=== PATIENT | female | born 2000 | race Caucasian/White ===

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

== ENCOUNTER 2020-09-21 14:00 | Outpatient (RCR) | payer OTHER, MEDICAID, SELFPAY ==
[2020-09-24 13:59] VITALS: BMI 28.5
== END 2020-09-21 23:59 ==
LOC: IMMUN 14:00
PROVIDERS: PCP Family Medicine; Visit Provider Family Medicine
DX: Z23 Encounter for immunization (principal)
CPT/HCPCS: 0001A; 91300

== ENCOUNTER 2021-10-04 12:23 | Outpatient (CLI) | payer OTHER, MEDICAID, SELFPAY ==
--- NOTE | 2021-10-04 12:29 | US_ITS ---
HISTORY: right breast mass EXAMINATION: US Breast Unilateral Limited TECHNIQUE: Targeted bueno scale and color-doppler imaging was performed of the right breast COMPARISON: None FINDINGS: Heterogeneous background echotexture. Dense peaks of normal breast parenchyma in the right breast area of clinical concern at the 11-12 o'clock position There are no solid or cystic lesions identified. No suspicious shadowing. There is no sonographic architectural distortion. US/Breast Limited Unilateral IMPRESSION: Normal subcutaneous peaks of dense breast parenchyma in the area of clinical concern. BIRADS CATEGORY: 2 - Benign findings. RECOMMENDATIONS: Clinical follow-up for palpable abnormality. Repeat ultrasound with diagnostic mammography would be recommended if there is interval clinical change or persistent clinical concern. Negative imaging should not preclude biopsy of a clinically suspicious abnormality. NOTES: 7-10% of cancers are not identified by mammography. Guidelines for Early Breast Cancer Detection: * Annual breast examination by a physician or other health care provider. * Monthly breast self-examination. * Annual mammography screening beginning at age 40 and continuing for as long as a woman is in good health. * Women at increased risk (e.g., family history, genetic tendency, past breast cancer) should talk with their doctors about the benefits and limitations of starting mammography screening earlier, having additional tests (e.g., breast ultrasound or MRI) or having more frequent exams. Screening MRI is recommended for women with an approximately 20-25% or greater lifetime risk of breast cancer, including women with a strong family history of breast or ovarian cancer and women who were treated for Hodgkin''s disease. at 0831 Reported and signed by: Smith Tello MD Electronically Signed: Smith Tello MD at 8:29 EDT ,
== END 2021-10-04 23:59 | disposition home or self-care (01) ==
PROVIDERS: PCP Family Medicine; Referring Provider Nurse Practitioner Women's Health; Visit Provider Nurse Practitioner Women's Health
DX: N63.10 Unspecified lump in the right breast, unspecified quadrant (principal)
CPT/HCPCS: 76642

== ENCOUNTER → 2022-01-10 | Outpatient (CLI) | payer OTHER, MEDICAID, SELFPAY ==
[2022-01-14 11:55] LABS: HPV Reflexed? NOT INDICATED
== END | disposition home or self-care (01) ==
LOC: LABSPEC 10:02
PROVIDERS: PCP Family Medicine; Visit Provider Nurse Practitioner Women's Health
DX: Z12.4 Encounter for screening for malignant neoplasm of cervix (principal)
CPT/HCPCS: 88175; G0145

== ENCOUNTER → 2023-02-09 | Outpatient (CLI) | payer OTHER, MEDICAID, SELFPAY ==
[2023-02-11 22:06] LABS: Chlamydia By Nucleic Acid AMP Negative (Negative); Gonococcus By Nucleic Acid AMP Negative (Negative)
== END | disposition home or self-care (01) ==
PROVIDERS: PCP Family Medicine; Referring Provider Advanced Practice Midwife; Visit Provider Advanced Practice Midwife
DX: O09.90 Supervision of high risk pregnancy, unspecified, unspecified trimester (principal); Z3A.00 Weeks of gestation of pregnancy not specified
CPT/HCPCS: 87086; 87088; 87491; 87591

== ENCOUNTER → 2023-02-09 | Outpatient (CLI) | payer MEDICAID, SELFPAY ==
[2023-02-09 15:27] LABS: Absolute Lymphocyte Count 1.79 X10^3/uL (0.83-4.51); Absolute Neutrophil Count 5.4 X10^3/uL (2.0-7.7); Basophil# 0.02 X10^3/uL; Basophil% 0.2 % (0-1); Eosinophil# 0.22 X10^3/uL; Eosinophils% 2.7 % (0-5); Hematocrit 38.1 % (37-47); Hemoglobin 12.8 g/dL (12.0-15.0); Lymphocyte # 1.79 X10^3/ul (0.83-4.51); Lymphocyte % 22.2 % (19-41); Mean Corp Hgb Conc 33.6 g/dL (32-36); Mean Corpuscular Hgb 28.6 pg (27.0-32.0); Mean Corpuscular Volume 85.2 fL (81-99); Mean Platelet Vol. 9.1 fl (6.2-12.0); Monocyte# 0.57 X10^3/uL; Monocyte% 7.1 % (0-10); NRBC Flagged by Analyzer 0 % (0-5); Neutrophil # 5.41 X10^3/uL (2.7-7.7); Neutrophil % 67.3 % (47-70); Platelet Count 260 K/mm3 (150-450); RBC Distribution Width SD 37.2 fl (35.1-43.9); Red Blood Count 4.47 M/mm3 (4.2-5.4); White Blood Count 8.1 K/mm3 (4.4-11.0)
[2023-02-09 16:52] LABS: HIV - WCH Non-Reactive (Nonreactive); Hepatitis B Surface Antigen Non-Reactive (Nonreactive); Hepatitis C Antibody Non-Reactive (Nonreactive); Rubella IgG Reactive (Nonreactive); Syphilis Antibodies Non-reactive
== END | disposition home or self-care (01) ==
PROVIDERS: PCP Family Medicine; Referring Provider Advanced Practice Midwife; Visit Provider Advanced Practice Midwife
DX: O09.90 Supervision of high risk pregnancy, unspecified, unspecified trimester (principal); Z3A.00 Weeks of gestation of pregnancy not specified
CPT/HCPCS: 36415; 85025; 86703; 86762; 86780; 86803; 86850; 86900; 86901; 87340

== ENCOUNTER → 2023-04-29 | Outpatient (CLI) | payer OTHER, MEDICAID, SELFPAY ==
--- NOTE | 2023-04-29 13:18 | US_ITS ---
STUDY: SECOND AND THIRD TRIMESTER OBSTETRICAL ULTRASOUND REASON FOR EXAM: Female, 22 years old anatomy US LMP: December 09, 2022. TECHNIQUE: Transabdominal and Transvaginal TECHNICAL QUALITY: Adequate. PRIOR ULTRASOUND: None. FINDINGS: There is a single intrauterine fetus. The fetus is in a transverse lie with the head on the maternal right side. There is demonstrated cardiac activity with a heart rate of 149 bpm. There is a normal amniotic fluid volume. The largest amniotic fluid pocket measures 4.57 x 3.1 cm. The amniotic fluid index (TRENT) is within normal limits. The placenta is posterior in location and is not low lying. There are Grade 0 placental changes. The cervix measures 3.1 cm in length. The adnexal regions are not visualized. BIOMETRY: BPD: 4.95 cm: 21 weeks, 0 days HC: 18.42 cm: 20 weeks, 5 days AC: 16.53 cm: 21 weeks, 4 days FL: 3.17 cm: 19 weeks, 6 days CI: 77% FL/BPD: 64% FL/HC: FL/AC: 19.2% HC/AC: 1.11 age by current US: 20 weeks, 5 days. ZORA by current US: September 11, 2023. Estimated weight: 383 grams, +/- 58 grams, 82 %. Age by LMP: 20 weeks, 1 days. ZORA by LMP: September 15, 2023. ANATOMY: Gender: Male Cranium: Normal lateral ventricles. Normal choroid plexus. Normal cerebellum. Normal cisterna magna. Normal face, nose and lips. Chest: Normal 4-chamber heart. Abdomen/Pelvis: Normal diaphragm. Normal stomach. Normal abdominal wall. Normal cord insertion. Normal 3 vessel cord. Normal kidneys. Normal bladder. Spine: Normal cervical spine. Normal thoracic spine. Normal lumbar spine. Normal sacrum. Extremities: Normal bilateral upper extremities. Normal bilateral lower extremities. IMPRESSION: Single live intrauterine gestation with a mean gestational age of 20 weeks and 5 days. Electronically Signed: Dwayne Valenzuela MD at 15:49 EDT , STUDY: FIRST TRIMESTER OBSTETRICAL ULTRASOUND REASON FOR EXAM: Female, 22 years old. Cervical length. LMP: December 09, 2022. TECHNIQUE: Transvaginal TECHNICAL QUALITY: Adequate. PRIOR ULTRASOUND: None. FINDINGS: Cervical length measures 3.1 cm. US/OB Anatomy Scan IMPRESSION: Cervical length measures 3.1 cm. Electronically Signed: Dwayne Valenzuela MD at 15:50 EDT ,
== END | disposition home or self-care (01) ==
PROVIDERS: PCP Family Medicine; Referring Provider Advanced Practice Midwife; Visit Provider Advanced Practice Midwife
DX: O09.90 Supervision of high risk pregnancy, unspecified, unspecified trimester (principal); Z3A.00 Weeks of gestation of pregnancy not specified
CPT/HCPCS: 76805; 76817

== ENCOUNTER → 2023-05-14 | Outpatient (CLI) | payer OTHER, MEDICAID, SELFPAY ==
--- NOTE | 2023-05-14 14:29 | US_ITS ---
EXAM: US , TRANSVAGINAL CLINICAL INDICATION: cervical length follow up. TECHNIQUE: Real-time endovaginal obstetrical ultrasound of the maternal pelvis and a first trimester with image documentation. Transvaginal imaging was used for better evaluation of the fetus and adnexa. COMPARISON: No relevant prior studies available. FINDINGS: GESTATION: Single fetus. Cephalic presentation. cardiac rate is 155 bpm. PLACENTA/AMNIOTIC FLUID: Posterior placenta. Amniotic fluid volume appears normal. UTERUS/CERVIX: Cervical length by endovaginal scanning is 3.8 cm. OVARIES: Not visualized. FREE FLUID: No free fluid. US/Transvaginal w/Preg US IMPRESSION: Single live second trimester intrauterine gestation. Normal cervical length. Electronically Signed: Julio César Mayorga MD at 15:58 EST ,
== END | disposition home or self-care (01) ==
LOC: US 14:29
PROVIDERS: PCP Family Medicine; Referring Provider Registered Nurse; Visit Provider Registered Nurse
DX: O26.872 Cervical shortening, second trimester (principal); Z3A.00 Weeks of gestation of pregnancy not specified
CPT/HCPCS: 76817

== ENCOUNTER → 2023-06-26 | Outpatient (CLI) | payer OTHER, MEDICAID, SELFPAY ==
[2023-06-26 10:54] LABS: Absolute Lymphocyte Count 1.18 X10^3/uL (0.83-4.51); Absolute Neutrophil Count 5.5 X10^3/uL (2.0-7.7); Basophil# 0.02 X10^3/uL; Basophil% 0.3 % (0-1); Eosinophils% 2.7 % (0-5); Hematocrit 32.8 % (37-47); Lymphocyte # 1.18 X10^3/ul (0.83-4.51); Lymphocyte % 16.1 % (19-41); Mean Corp Hgb Conc 33.5 g/dL (32-36); Mean Corpuscular Hgb 29.5 pg (27.0-32.0); Mean Corpuscular Volume 87.9 fL (81-99); Mean Platelet Vol. 9.3 fl (6.2-12.0); Monocyte# 0.41 X10^3/uL; Monocyte% 5.6 % (0-10); NRBC Flagged by Analyzer 0 % (0-5); Neutrophil % 74.8 % (47-70); Platelet Count 195 K/mm3 (150-450); RBC Distribution Width CV 12.1 % (11.6-14.6); RBC Distribution Width SD 38.9 fl (35.1-43.9); Red Blood Count 3.73 M/mm3 (4.2-5.4); White Blood Count 7.4 K/mm3 (4.4-11.0)
--- OUTSIDE RECORDS SUMMARY | 2023-06-26 10:57 | XMS RPT_ITS | CCD ---
Author Name Unknown Address [id number] [place] [address] Organization [facility] Care Team Providers Care Shift Superintendent Caustic Cresylate Name Role Phone Pham BOSE, Belle Jermoe Unavailable [phone] OROZCO Unavailable Unavailable BELLE NATH Unavailable UnavailMANJU Moreira Unavailable Unavailable NO, DOCTOR ON Consulting Unavailable MAUREEN YA DO Admitting Unavailable DIDMAUREEN CHEUNG DO Primary Care Unavailable MAUREEN YA DO Attending Unavailable TRUSSNENA DO Admitting Unavailable TRUSSNENA DO Primary Care Unavailable TRUSSNENA DO Attending Unavailable NO, DOCTOR ON Consulting Unavailable Medications Completed/Discontinued Medications Medication Drug Class(es) Dates Sig (Normalized) Sig (Original) VIT-FE FUMARATE-FA (13 sources) Start: 01-30-2017 take 1 tablet by mouth once daily VITAMINS 28-0.8 MG TABS One tablet by mouth daily VIT-FE FUMARATE-FA [id number] Belle Nath MD Problems Active Problems Problem Classification Problem Date Documented Date Episodic/Chronic E Codes: Place of occurrence (1 source) Unspecified place in unspecified non-institutional (private) residence as the place of occurrence of the external cause; Translations: [Unspecified place in unspecified non-institutional (private) residence as the place of occurrence of the external cause] Onset: 07-30-2021 Episodic E Codes: Struck by; against (1 source) Walked into wall, initial encounter; Translations: [Walked into wall, initial encounter] Onset: 07-30-2021 Episodic E Codes: Unspecified (1 source) Activity, other specified; Translations: [Activity, other specified] Onset: 07-30-2021 Episodic Fracture of lower limb (1 source) Displaced fracture of proximal phalanx of left lesser toe(s), initial encounter for closed fracture; Translations: [Displaced fracture of proximal phalanx of left lesser toe(s), initial encounter for closed fracture] Onset: 07-30-2021 Episodic Other bone disease and musculoskeletal deformities (20 sources) Kezia Schlatter disease; 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, unspecified leg] Resolved: 02-01-2017 02-01-2017 Chronic Other connective tissue disease (2 sources) Pain in left foot; Translations: [Pain in left foot] Onset: 07-30-2021 Episodic Residual codes; unclassified (1 source) 20 weeks gestation of ; Translations: [20 weeks gestation of ] Onset: 01-30-2017 04-21-2017 Past or Other Problems Problem Classification Problem Date Documented Da te Episodic/Chronic Fracture of upper limb (20 sources) Unspecified fracture of lower end of unspecified ulna, initial encounter for closed fracture; Translations: [Fracture of distal end of radius] Onset: 08-26-2011 Resolved: 02-01-2017 02-01-2017 Episodic Normal and/or delivery (20 sources) Gestation period, 10 weeks; Translations: [Gestation period, 12 weeks] Onset: 01-30-2017 02-01-2017 Episodic Other non-traumatic joint disorders (20 sources) Pain in wrist; Translations: [Knee pain] Onset: 08-26-2011 Resolved: 02-01-2017 02-01-2017 Episodic Other non-traumatic joint disorders (4 sources) Knee pain; Translations: [Pain in right knee] Resolved: 02-01-2017 02-01-2017 Episodic Unclassified (8 sources) 16 weeks gestation of ; Translations: [16 weeks gestation of ] Onset: 01-30-2017 03-27-2017 Results Test Name Value Interpretation Reference Range Facil ity Vital Signs Date Time Vital Sign Value Performing Clinician Anderson duarte 05-22-2017 13:04-0500 BP Diastolic 73 mm[Hg] Belle Nath MD [facility] 05-22-2017 13:04-0500 BP Systolic 135 mm[Hg] Belle Nath MD [facility] 05-22-2017 13:04-0500 Weight 89.81 kg Belle Nath MD [facility] 04-21-2017 16:36-0400 Body Temperature 97.4 [degF] Belle Nath MD [facility] 04-21-2017 16:36-0400 BP Diastolic 62 mm[Hg] Belle Nath MD [facility] 04-21-2017 16:36-0400 BP Systolic 109 mm[Hg] Belle Nath MD [facility] 04-21-2017 16:36-0400 Pulse (Heart Rate) 78 /min Belle Nath MD [facility] 04-21-2017 16:36-0400 Respiratory Rate 16 /min Belle Nath MD [facility] 04-21-2017 16:36-0400 Weight 44.18 kg Belle Nath MD [facility] 03-27-2017 06:52-0400 Body Temperature 97.2 [degF] Belle Nath MD [facility] 03-27-2017 06:52-0400 BP Diastolic 65 mm[Hg] Belle Nath MD [facility] 03-27-2017 06:52-0400 BP Systolic 115 mm[Hg] Belle Nath MD [facility] 03-27-2017 06:52-0400 Pulse (Heart Rate) 88 /min Belle Nath MD [facility] 03-27-2017 06:52-0400 Respiratory Rate 16 /min Belle Nath MD [facility] 03-27-2017 06:52-0400 Weight 83.01 kg Belle Nath MD [facility] 02-26-2017 15:47-0400 Body Temperature 97.5 [degF] Belle Nath MD [facility] 02-26-2017 15:47-0400 BP Diastolic 63 mm[Hg] Belle Nath MD [facility] 02-26-2017 15:47-0400 BP Systolic 119 mm[Hg] Belle Nath MD [facility] 02-26-2017 15:47-0400 Pulse (Heart Rate) 64 /min Belle Nath MD [facility] 02-26-2017 15:47-0400 Respiratory Rate 16 /min Belle Nath MD [facility] 02-26-2017 15:47-0400 Weight 79.2 kg Belle Nath MD [facility] 01-30-2017 15:25-0400 BMI (Body Mass Index) 26.82 kg/m2 Belle Nath MD [facility] 01-30-2017 15:25-0400 Body Temperature 98.29 [degF] Belle Nath MD [facility] 01-30-2017 15:25-0400 Body Temperature 98.3 [degF] Belle Nath MD [facility] 01-30-2017 15:25-0400 BP Diastolic 81 mm[Hg] Belle Nath MD [facility] 01-30-2017 15:25-0400 BP Systolic 128 mm[Hg] Belle Nath MD [facility] 01-30-2017 15:25-0400 Height 172.72 cm Belle Nath MD [facility] 01-30-2017 15:25-0400 Pulse (Heart Rate) 91 /min Belle Nath MD [facility] 01-30-2017 15:25-0400 Respiratory Rate 16 /min Belle Nath MD [facility] 01-30-2017 15:25-0400 Weight 80.01 kg Belle Nath MD [facility] 01-30-2017 15:25-0400 Weight 80.02 kg Belle Nath MD [facility] 01-05-2012 09:45-0400 BP Diastolic 66 mm[Hg] Belle Nath MD [facility] 01-05-2012 09:45-0400 BP Systolic 102 mm[Hg] Belle Nath MD [facility] 01-05-2012 09:45-0400 Pulse (Heart Rate) 88 /min Belle Nath MD [facility] 01-05-2012 09:45-0400 Weight 59.88 kg Belle Nath MD [facility] 08-26-2011 10:50-0500 Height 172.72 cm Belle Nath MD [facility] Encounters Encounter Date Encounter Type Care Provider Facility Start: 07-30-2021 End: 07-30-2021 Emergency department patient visit NENA MCFADDEN [facility] Start: 01-06-2021 End: 01-06-2021 Emergency department patient visit DOCTOR IAN HENSON [facility] Start: 02-16-2017 End: 02-16-2017 [facility] Procedures Date Procedure Procedure Detail Performing Clinician Start: 05-22-2017 End: 05-22-2017 Routine OB Visit (Global) Belle ospina MD Work Phone: Start: 05-22-2017 End: 06-20-2017 *CBC with Differential Belle coker MD Work Phone: Start: 05-22-2017 End: 06-20-2017 GTT (glucose after 1hr PO glucose) Belle Nath MD Work Phone: Start: 05-22-2017 End: 05-22-2017 Routine OB Visit (Global) Belle ospina MD Work Phone: Start: 03-27-2017 End: 03-27-2017 Routine OB Visit (Global) Belle ospina MD Work Phone: Start: 03-27-2017 End: 03-27-2017 Routine OB Visit (Global) Belle ospina MD Work Phone: Start: 02-26-2017 End: 02-26-2017 Routine OB Visit (Global) Belle ospina MD Work Phone: Start: 02-26-2017 End: 02-26-2017 Routine OB Visit (Global) Belle ospina MD Work Phone: Start: 01-30-2017 End: 01-30-2017 Urinalysis Belle Dunlap Start: 01-30-2017 End: 02-16-2017 *CBC with Differential Belle coker MD Work Phone: Start: 01-30-2017 End: 02-01-2017 *GC/Chlamydia Belle Nath MD Work Phone: Start: 01-30-2017 End: 02-17-2017 *HIV antibody Belle Nath MD Work Phone: Start: 01-30-2017 End: 02-01-2017 Bacteria identified in Urine by Culture Belle Nath MD Work Phone: Start: 01-30-2017 End: 02-19-2017 Reagin Ab [Presence] in Serum by RPR Belle Nath MD Work Phone: Start: 01-30-2017 End: 02-01-2017 Routine OB Visit (Global) Belle ospina MD Work Phone: Start: 01-30-2017 End: 02-16-2017 Rubella virus Ab [Units/volume] in Serum Belle Nath MD Work Phone: Start: 01-30-2017 End: 02-16-2017 *CBC with Differential Belle coker MD Work Phone: Start: 01-30-2017 End: 02-01-2017 *GC/Chlamydia Belle Nath MD Work Phone: Start: 01-30-2017 End: 02-17-2017 *HIV antibody Belle Nath MD Work Phone: Start: 01-30-2017 End: 02-19-2017 Reagin antibody presence Belle garcia MD Work Phone: Start: 01-30-2017 End: 02-01-2017 Routine OB Visit (Global) Belle ospina MD Work Phone: Start: 01-30-2017 End: 02-16-2017 Rubella virus Ab [Units/volume] in Serum Belle Nath MD Work Phone: Start: 01-30-2017 End: 02-01-2017 Urine culture, bacteria Belle marroquin MD Work Phone: Plan of Treatment Date Care Activity Detail Author Start: 06-17-2017 End: 06-17-2017 Appointment Appointment [facility] Start: 05-22-2017 End: 05-22-2017 *CBC with Differential *CBC with Differential [facility] Start: 05-22-2017 End: 05-22-2017 GTT (glucose after 1hr PO glucose) *Glucose, Post Glucose Dose [facility] Start: 05-22-2017 End: 05-22-2017 Appointment Appointment [facility] Start: 05-22-2017 End: 06-20-2017 *CBC with Differential *CBC with Differential [facility] Start: 05-22-2017 End: 06-20-2017 GTT (glucose after 1hr PO glucose) *Glucose, Post Glucose Dose [facility] Start: 04-21-2017 End: 04-21-2017 Appointment Appointment [facility] Start: 03-27-2017 End: 03-27-2017 Appointment Appointment [facility] Start: 02-26-2017 End: 02-26-2017 Appointment Appointment [facility] Start: 02-26-2017 End: 02-26-2017 Us preg uterus after 1st trimest / gestation US OB, >14 weeks [facility] Start: 02-26-2017 End: 02-26-2017 Ob us >/= 14 wks, sngl fetus US OB, >14 weeks [facility] Start: 01-30-2017 End: 02-16-2017 *CBC with Differential *CBC with Differential [facility] Start: 01-30-2017 End: 02-01-2017 *GC/Chlamydia *GC/Chlamydia [facility] Start: 01-30-2017 End: 02-17-2017 *HIV antibody *HIV antibody [facility] Start: 01-30-2017 End: 02-01-2017 *TS Type and Screen *TS Type and Screen [facility] Start: 01-30-2017 End: 02-01-2017 Hep B Ag(s) Hep B Ag(s) [facility] Start: 01-30-2017 End: 02-19-2017 Reagin antibody presence *RPR [facility] Start: 01-30-2017 End: 02-16-2017 Rubella virus Ab [Units/volume] in Serum *Rubella Screen [facility] Start: 01-30-2017 End: 02-01-2017 Urine culture, bacteria *CUUR - Culture, Urine ([place] Count) [facility] Start: 01-30-2017 End: 02-16-2017 *CBC with Differential *CBC with Differential [facility] Start: 01-30-2017 End: 02-01-2017 *GC/Chlamydia *GC/Chlamydia [facility] Start: 01-30-2017 End: 02-17-2017 *HIV antibody *HIV antibody [facility] Start: 01-30-2017 End: 02-01-2017 *TS Type and Screen *TS Type and Screen [facility] Start: 01-30-2017 End: 02-01-2017 Hep B Ag(s) Hep B Ag(s) [facility] Start: 01-30-2017 End: 02-19-2017 Reagin antibody presence *RPR [facility] Start: 01-30-2017 End: 02-16-2017 Rubella virus Ab [Units/volume] in Serum *Rubella Screen [facility] Start: 01-30-2017 End: 02-01-2017 Urine culture, bacteria *CUUR - Culture, Urine ([place] Count) [facility] Payers Date Payer Category Payer Unknown [id number] 1999 Unknown [id number] Unknown [id number] Unknown [id number] Summary Purpose Family History No Family History Records FoundNo Family History Records Found Advance Directives No Advanced Directives Records FoundNo Advanced Directives Records Found Additional Source Comments INFORMATION SOURCE (unrecogn ized section and content) DATE CREATED AUTHOR AUTHOR'S ORGANIZ ATION 10/02/2021 [facility] FOR RECORDS PERTAINING TO PATIENTS WHO ARE OR HAVE BEEN ENROLLED IN A CHEMICAL DEPENDENCY/SUBSTANCEABUSE PROGRAM, SOME INFORMATION MAY BE OMITTED. This clinical summary was aggregated from multiple sources. Caution should be exercised in using it in the provision of clinical care. This summary normalizes information from multiple sources, and as a consequence, information in this document may materially change the coding, format and clinical context of patient data. In addition, data may be omitted in some cases. CLINICAL DECISIONS SHOULD BE BASED ON THE PRIMARY CLINICAL RECORDS. [facility] [employer] [facility]. provides no warranty or guarantee of the accuracy or completeness of information in this document.
[2023-06-26 11:14] LABS: Glucose Challenge Gest 1H 50g 105 mg/dL (70-140)
[2023-06-26 11:48] LABS: HIV - WCH Non-Reactive (Nonreactive); Syphilis Antibodies Non-reactive
== END | disposition home or self-care (01) ==
PROVIDERS: PCP Family Medicine; Referring Provider Registered Nurse; Visit Provider Registered Nurse
DX: O09.90 Supervision of high risk pregnancy, unspecified, unspecified trimester (principal); Z3A.00 Weeks of gestation of pregnancy not specified
CPT/HCPCS: 36415; 82950; 85025; 86703; 86780

== ENCOUNTER → 2023-08-24 | Outpatient (CLI) | payer OTHER, MEDICAID, SELFPAY | END | disposition home or self-care (01) | PROVIDERS: PCP Family Medicine; Visit Provider Registered Nurse | DX: Z34.90 Encounter for supervision of normal pregnancy, unspecified, unspecified trimester (principal); Z3A.00 Weeks of gestation of pregnancy not specified | CPT/HCPCS: 87081 ==

== ENCOUNTER 2023-09-05 05:40 | Inpatient (IN) | payer OTHER, MEDICAID, SELFPAY ==
[2023-09-05] VITALS (99 sets, daily range): BP systolic 77–136; BP diastolic 37–75; PULSE 60–166; RESP 14–16; TEMP 36.3–37.4; O2SAT 90–100; BMI 32.2
[2023-09-05 05:48] LABS: ROM Internal Control Test YES-OK TO RESULT pt. (Internal QC)
[2023-09-05 05:49] LABS: ROM Patient Test POSITIVE (Negative); Record Kit Lot#, ROM+ K1374
[2023-09-05] MEDS: Lactated Ringers 1,000 ML 50 ML IV ×2 (05:50→12:26)
[2023-09-05 06:08] LABS: Absolute Lymphocyte Count 1.32 X10^3/uL (0.83-4.51); Absolute Neutrophil Count 6.4 X10^3/uL (2.0-7.7); Basophil# 0.03 X10^3/uL; Basophil% 0.4 % (0-1); Eosinophils% 1.2 % (0-5); Hematocrit 31.2 % (37-47); Hemoglobin 9.9 g/dL (12.0-15.0); Lymphocyte # 1.32 X10^3/ul (0.83-4.51); Lymphocyte % 15.7 % (19-41); Mean Corp Hgb Conc 31.7 g/dL (32-36); Mean Corpuscular Hgb 25.8 pg (27.0-32.0); Mean Corpuscular Volume 81.3 fL (81-99); Mean Platelet Vol. 10.1 fl (6.2-12.0); Monocyte# 0.46 X10^3/uL; Monocyte% 5.5 % (0-10); NRBC Flagged by Analyzer 0 % (0-5); Neutrophil # 6.44 X10^3/uL (2.7-7.7); Neutrophil % 76.5 % (47-70); Platelet Count 200 K/mm3 (150-450); RBC Distribution Width CV 14.1 % (11.6-14.6); RBC Distribution Width SD 40.8 fl (35.1-43.9); Red Blood Count 3.84 M/mm3 (4.2-5.4); White Blood Count 8.4 K/mm3 (4.4-11.0)
--- NOTE | 2023-09-05 08:02 | HP.PCM.OB_ITS ---
HPI - General General Date of Admission: 09/05/23 HPI Narrative TOM STEPHENS, is a 23 F who presents with contractions and some vb, variable decel upon admission. Maternal Data Information ZORA Calculator Estimated Delivery Date Method Current WG Current Estimate 09/15/23 LMP (Certain) 38w 4d PFSH PFSH Medical History Encounter for IUD removal Mass of breast, right Home Medications promethazine 12.5 mg tablet 12.5 mg PO Q6H PRN nausea and vomiting #90 tabs 02/10/23 [Rx Last Taken Unknown] famotidine 20 mg tablet (Pepcid) 20 mg PO DAILY #30 tabs 05/07/23 [Rx Last Taken 09/04/23] Allergy/AdvReac Type Severity Reaction Status Date / Time No Known Allergies Allergy Verified 09/05/23 05:13 Social History adopted: No household members: family housing: house number of children: 1 current occupational status: employed current occupation: [employer] current occupational exposures/hazards: No pets and animals: Yes pets and animals: dog(s) history of recent travel: Yes details: [place] out of state: Yes sexually active: Yes Smoking Status: Never smoker alcohol intake: never substance use type: does not use caffeine: No what type of physical activity do you participate in: none seatbelt use: always do you feel safe at home: Yes additional social history: Meir History 2 Elective abortions Hx Para 1 Spontaneous abortions Hx # Term Pregnancies 1 Ectopic pregnancies Hx # Pregnancies Multiple births # of living children 1 Past Pregnancies Del. Date Name GA/Weeks Outcome Route Bth Weight Gen Labor Lgth Anesthesia Del Locatn Provider FOB 09/01/17 Jake live - full term 7 lbs 15 oz Male [facility] Dr. Nath Visit Details Expected Delivery Route/Plan Labor Preferences- CB/BF classes: na labor support person: Meir labor intervention preferences: pain management options preferred: open to epidural. cut cord/dad catch: : plans, breastfed first x3 years PP control planned: [] discussed possible routes of delivery and associated risks: discussed possible delivery modalities and possible indications for each including R/B/A of , VAVD, and CS. questions answered. special requests: does not want to be induced. Plans Covid status: Flu vaccine: declined Tdap vaccine: obtained 06/26 Rhogam: n LARC form signed: completed. Problem list reviewed and updated with the most current plan of care details and appropriate orders placed. Relevant counseling for the gestational age provided. Continue routine care and follow up unless otherwise noted in visit notes/problem list details OB Flowsheet Initial Weight: 195 lb Date -?-?-?-?-?-?-?-?-?-?-?-?- EGA Weight BP Urine Prot -?-?-?-?-?-?-?-?-?-?-?-?- Glucose FHR FuHt Pres Dilation -?-?-?-?-?-?-?-?-?-?-?-?- Effaced St Visit Note 02/09/23 -?-?-?-?-?-?-?-?-?-?-?-?- 8w 6d 195 lb 6 oz (+6 oz) 137/84 -?-?--?-?-?-?-?-?-?-?-?-?- 175 -?-?-?-?-?-?-?-?-?-?-?-?- KW-CRL cons with dates, doing well. 03/09/23 -?-?-?-?-?-?-?-?-?-?-?-?- 12w 6d 193 lb 4 oz (-1 lb 12 oz) 110/64 Negative -?-?-?-?-?-?-?-?-?-?-?-?- Negative 170 -?-?-?-?-?-?-?-?-?-?-?-?- KW-no vb or cram ping. doing well. Formal US ordered 04/09/23 -?-?-?-?-?-?-?-?-?-?-?-?- 17w 2d 203 lb (+8 lb) 136/86 Negative -?-?-?-?-?-?-?-?-?-?-?-?- Negative 160 -?-?-?-?-?-?-?-?-?-?-?-?- KW-no vb/crampin g. KW-no vb/cramping. will call to get US scheduled. Doing well. ordered pepcid for heart burn 05/07/23 -?-?-?-?-?-?-?-?-?-?-?-?- 21w 2d 207 lb 6 oz (+12 lb 6 oz) 126/68 Negative -?-?-?-?-?-?-?-?-?-?-?-?- Negative 150 -?-?-?-?-?--?-?-?-?-?-?-?- LC- no vb/crampi ng. normal anatomy. CL 3.1, will obtain f.u in 2 weeks. 06/04/23 -?-?-?-?-?-?-?-?-?-?-?-?- 25w 2d 214 lb 6 oz (+19 lb 6 oz) 135/79 Negative -?-?-?-?-?-?-?-?-?-?-?-?- Negative 138 25 -?-?-?-?-?-?-?-?-?-?-?-?- LC- no vb/ctx/lo f. good fm. repeat cl=3.8. 28 week labs ordered. 06/26/23 -?-?-?-?-?-?-?-?-?-?-?-?- 28w 3d 222 lb 8 oz (+27 lb 8 oz) 132/80 Negative -?-?-?-?-?-?-?-?-?-?-?-?- Negative 143 28 -?-?-?-?-?-?-?-?-?-?-?-?- LC- no vb/ctx/lo f. good fm. passed 28 week glucose. hbg 11. to start iron as pnv didn't have any in it. repeat cbc in 4 weeks. 07/06/23 -?-?-?-?-?-?-?-?-?-?-?-?- 29w 6d 224 lb (+29 lb) 117/67 Negative -?-?-?-?-?-?-?-?-?-?-?-?- Negative 140 30 -?-?-?-?-?-?-?-?-?-?-?-?- kw-no vb/ctx. go od fm. no concerns today. 07/20/23 -?-?-?-?-?-?-?-?-?-?-?-?- 31w 6d 225 lb (+30 lb) 105/72 Trace -?-?-?-?-?-?-?-?-?-?-?-?- Negative 150 32 -?-?-?-?-?-?-?-?-?-?-?-?- KW- no vb/crampi ng. Good fm. no concerns. to get cbc next visit. 08/12/23 -?-?-?-?-?-?-?-?-?-?-?-?- 35w 1d 228 lb 2 oz (+33 lb 2 oz) 130/84 Negative -?-?-?-?-?-?-?-?-?-?-?-?- Negative 133 35 -?-?-?-?-?-?-?-?-?-?-?-?- MH-No VB, LOF. G ood Fm. Denies concerns 08/24/23 -?-?-?-?-?-?-?-?-?-?-?-?- 36w 6d 230 lb 8 oz (+35 lb 8 oz) 130/76 Negative -?-?-?-?-?-?-?-?-?-?-?-?- Negative 140 36 Cephalic 0 .5 -?-?-?-?-?-?-?-?-?-?-?-?- 20 -3 LC- no vb/ ctx/lof. good fm. gbs obtained. denies concerns. 09/04/23 -?-?-?-?-?-?-?-?-?-?-?-?- 38w 3d 231 lb 4 oz (+36 lb 4 oz) 137/85 Negative -?-?-?-?-?-?-?-?-?-?-?-?- Negative 150 38 Cephalic 2 -?-?-?-?-?-?-?-?-?-?-?-?- 80 -3 JV- pt wan ts membranes swept next visit. no lof, vaginal bleeding, or dec fm. NST FHR Rate Baby A Baseline: 140 Variability:: Moderate Accelerations:: 15 x 15 Decelerations:: None NST Reactive:: Yes FHR Category:: Category I Uterine Activity:: q3-5 ROS Constitutional Constitutional: Reports systems reviewed and no addt'l complaints, except as documented ENT HEENT: Reports systems reviewed and no addt'l complaints, except as documented Cardiovascular Cardiovascular: Reports systems reviewed and no addt'l complaints, except as documented Respiratory/Chest Respiratory/Chest: Reports systems reviewed and no addt'l complaints, except as documented Gastrointestinal Gastrointestinal: Reports systems reviewed and no addt'l complaints, except as documented and nausea; Denies abdominal pain Genitourinary Genitourinary: Reports systems reviewed and no addt'l complaints, except as documented, contractions Details: present and frequency (regular ) and movement Details: present Musculoskeletal Musculoskeletal: Reports systems reviewed and no addt'l complaints, except as documented Integumentary Integumentary: Reports as per HPI Neurologic Neurologic: Reports systems reviewed and no addt'l complaints, except as documented Endocrine Endocrinology: Reports systems reviewed and no addt'l complaints, except as documented Vital Signs Vital Signs Vital Signs: 09/05/23 04:57 09/05/23 04:57 09/05/23 04:58 Temperature Temperature Source Pulse Rate 88 92 Respiratory Rate Blood Pressure 136/75 H BP Systolic 136 BP Diastolic 75 Pulse Ox 09/05/23 04:58 09/05/23 05:05 09/05/23 05:05 Temperature Temperature Source Oral Pulse Rate Respiratory Rate Blood Pressure 136/75 H BP Systolic 136 BP Diastolic 75 Pulse Ox 99 09/05/23 05:05 09/05/23 05:05 09/05/23 05:05 Temperature Temperature Source Pulse Rate 90 Respiratory Rate 16 Blood Pressure BP Systolic BP Diastolic Pulse Ox 99 09/05/23 05:05 09/05/23 05:23 09/05/23 05:23 Temperature 99.0 F Temperature Source Pulse Rate 93 Respiratory Rate Blood Pressure 123/72 H BP Systolic 123 BP Diastolic 72 Pulse Ox 09/05/23 06:30 09/05/23 06:30 09/05/23 07:16 Temperature Temperature Source Pulse Rate 85 Respiratory Rate Blood Pressure 125/67 H 121/74 H BP Systolic 125 121 BP Diastolic 67 74 Pulse Ox 09/05/23 07:16 09/05/23 07:17 09/05/23 07:17 Temperature Temperature Source Pulse Rate 85 166 H Respiratory Rate Blood Pressure BP Systolic BP Diastolic Pulse Ox 98 09/05/23 07:17 09/05/23 07:17 09/05/23 07:17 Temperature Temperature Source Oral Pulse Rate 80 Respiratory Rate 14 Blood Pressure BP Systolic BP Diastolic Pulse Ox 09/05/23 07:17 09/05/23 07:17 Temperature 98.9 F Temperature Source Pulse Rate Respiratory Rate Blood Pressure BP Systolic BP Diastolic Pulse Ox 100 Weight Weight: 231 lb Body Mass Index (BMI) 32.2 Physical Exam Const alert, oriented x3 and healthy appearing Constitutional Narrative: uncomfortable with contractions HEENT normocephalic and moist oral mucous membranes Head and Scalp: atraumatic Neck full ROM, no lymphadenopathy, supple and thyroid normal General: trachea midline Thyroid: thyroid normal Lymph Lymphatic: no lymphadenopathy noted Chest inspection of chest normal Resp normal respiratory effort Cardio regular rate GI normal to inspection, nondistended, normoactive bowel sounds, soft to palpation and non-tender Inspection: gravid external exam normal Bimanual Exam - Vag & Uterus: uterus non-tender Manual OB Exam: estimated gestational size appropriate, presentation cephalic, dilated, effaced and station Extremity normal to inspection General Extremity: Negative for edema Skin no rashes or lesions noted Neuro deep tendon reflexes 2+ bilaterally Motor Exam: strength 5/5 throughout and clonus absent Psych mental status grossly normal Labs Labs Labs: Blood Type A POSITIVE Antibody Screen NEGATIVE Hct 31.2 % (37-47) L Hgb 9.9 g/dL (12.0-15.0) L Obstetrics Ultrasound Syphilis Total Ab Non-reactive Rubella IgG Antibody Reactive (Nonreactive) Hep Bs Antigen Non-Reactive (Nonreactive) Hepatitis C Antibody Non-Reactive (Nonreactive) Chlamydia DNA (RAI) Negative (Negative) N.gonorrhoeae DNA (RAI) Negative (Negative) HIV 1&2 Antibody Non-Reactive (Nonreactive) Glucose 1 Hr 50 gm 105 mg/dL (70-140) Group B Strep DNA Negative (Negative) Rhogam given: No Miscellaneous Test Assessment & Plan (1) Short cervical length during : QUALIFIERS: Trimester: second trimester Qualified Code(s): O26.872 - Cervical shortening, second trimester COMMENT: 3.1 mm on anatomy. repeat in 2 weeks.=3.8 (2) Nausea and vomiting during : (3) : QUALIFIERS: Weeks of gestation: 38 weeks Qualified Code(s): Z3A.38 - 38 weeks gestation of COMMENT: Declines NIPT, nl anatomy , gbs negative (4) Supervision of high risk , antepartum: COMMENT: [id number] ZORA 09/15/23 PC Jake Spouse Meir (5) Vaginal bleeding during : PLAN: Plan admits with vaginal bleeding, possible early labor. variable decel. expectant management for now and then supportive care.
[2023-09-05 08:39] LABS: Syphilis Antibodies Non-reactive
[2023-09-05] MEDS: Oxytocin 15 Units/NS 250ml 15 UNITS/250 ML IV.SOLN 2 UNITS IV (11:23)
[2023-09-05] MEDS: LACTATED RINGERS 500 ML 999 ML IV ×2 (13:48→15:27)
[2023-09-05] MEDS: fentaNYL-bupivacaine (epidural) 100 ML BAG EPIDURAL (14:32)
[2023-09-05] MEDS: Lactated Ringers 1,000 ML 200 ML IV (14:35)
--- NOTE | 2023-09-05 17:22 | EX.PCM.OBRPT ---
Assessment & Plan (1) Supervision of high risk , antepartum: COMMENT: [id number] ZORA 09/15/23 PC Jake Spouse Meir (2) : QUALIFIERS: Weeks of gestation: 38 weeks Qualified Code(s): Z3A.38 - 38 weeks gestation of COMMENT: Declines NIPT, nl anatomy , gbs negative (3) Nausea and vomiting during : (4) Short cervical length during : QUALIFIERS: Trimester: second trimester Qualified Code(s): O26.872 - Cervical shortening, second trimester COMMENT: 3.1 mm on anatomy. repeat in 2 weeks.=3.8 (5) Vaginal bleeding during : (6) Vaginal delivery: COMMENT: SM IAL SROM 38 boy Pravin Maternal Data Information ZORA Calculator Estimated Delivery Date Method Current WG Current Estimate 09/15/23 LMP (Certain) 38w 4d Vaginal Delivery Operative Information Date of Procedure: 09/05/23 Pre-Operative Diagnosis: see a/p diagnoses Post-Operative Diagnosis: same Surgery / Procedure Performed: Spontaneous Vaginal Delivery Type of Anesthesia: Epidural Special Medications: none Estimated Blood Loss: 300 Fluids Replaced: crystalloid Findings Description of Procedure: Patient began pushing and delivered the head in the brice presentation. The head was delivered atraumatically . The anterior and posterior shoulders delivered without complication followed by the rest of the infant and the was placed on the maternal abdomen. Delayed cord clamping was employed for approximately 60 seconds. Cord was clamped and cut and gentle traction was applied to the cord and the placenta delivered spontaneously immediately following it was noted to be intact with three-vessel cord. The perineum and vagina were inspected and noted to have no laceration. EBL was 300. Patient and infant tolerated delivery well. Amniotic Fluid Description: Clear Placental Delivery Description: Spontaneous Placenta Disposition: [facility] Cord Vessel Description: 3 Vessels Cord Entanglement: None Delayed Cord Clamping: Yes Post Vaginal Delivery Medications Given After Delivery: IV Pitocin Episiotomy Description: None Complication Complications: None Procedures Urinary/Genital [id number]: [id number] Vaginal Delivery [facility]
--- NOTE | 2023-09-05 17:26 | DCINST_ITS ---
Discharge Instructions Diet Discharge Diet: No restrictions Activity Discharge Activity: Return to Normal Activity, May Not Drive (while taking narcotic pain medications.) and May Shower May resume sexual activity in: 4-6 weeks Dressing / Incision Call your doctor if your incision/area has: Continuous Slow Oozing, Sudden Increased Bleeding, Increased Pain/ Swelling, Increased Redness and Foul Smelling Discharge Follow Up Care Please Follow Up With: Belle Nath MD When: Call [phone] to make an appointment with your doctor in 6 weeks. If you had elevated blood pressure or 4th degree laceration, you will need to be seen in 2 weeks. Test Results: Test results from this visit will be discussed in further detail at your follow- up appointment, if applicable. Discharge Plan Admission Admit Date/Time: 09/05/23 05:40 Attending Provider: Belle Nath Primary Care Provider: Jeramy Tran Discharge Orders/Prescriptions Prescriptions: No Action famotidine [Pepcid] 20 mg tablet 20 mg PO DAILY Qty: 30 6RF promethazine 12.5 mg tablet 12.5 mg PO Q6H PRN (Reason: nausea and vomiting) Qty: 90 1RF Hold Instructions: Order Completed Referrals / Follow Up: Jeramy Tran MD [Primary Care Provider] - Disposition Disposition (needs filled in before D/C Order can be placed): Home, Self Care
[2023-09-05] MEDS: Oxytocin 15 Units/NS 250ml 15 UNITS/250 ML IV.SOLN 83 UNITS IV (17:44)
[2023-09-05] MEDS: Methylergonovine 0.2 MG/ML Ampul IM (18:16)
[2023-09-05] MEDS: Carboprost Tromethamine 250 MCG/ML Ampul IM (19:20)
[2023-09-05] MEDS: TRANEXAMIC ACID 1,000 MG in 0.9% Normal Saline (100mL Bag) 100 ML 440 MG IV (19:29)
--- NOTE | 2023-09-05 19:36 | PCM.PN.BLA ---
Progress Note patient seen for hemorrhage- multiple clots from lining of uterus evacuated, ultrasound performe dna dmanual exploration revealed no retained POC. hemabate and TXA given, stat cbc drawn., will give liter LR now also, bladder drained., ancef x 1 will be given. reviewed with staff to continue close monitoring, agree with plan.
[2023-09-05] MEDS: 0.9% Saline Lock 10 ML Syringe IV (19:45)
[2023-09-05] MEDS: Ondansetron 4 MG/2 ML Vial IV (19:45)
[2023-09-05] MEDS: Naproxen 500 MG Tablet PO (19:46)
[2023-09-05 19:50] LABS: Hematocrit 31.8 % (37-47); Hemoglobin 10.1 g/dL (12.0-15.0); Mean Corp Hgb Conc 31.8 g/dL (32-36); Mean Corpuscular Hgb 25.7 pg (27.0-32.0); Mean Corpuscular Volume 80.9 fL (81-99); Mean Platelet Vol. 10.1 fl (6.2-12.0); Platelet Count 197 K/mm3 (150-450); RBC Distribution Width CV 13.9 % (11.6-14.6); Red Blood Count 3.93 M/mm3 (4.2-5.4); White Blood Count 13.3 K/mm3 (4.4-11.0)
[2023-09-05] MEDS: Acetaminophen 500 MG Tablet 1000 MG PO (19:57)
[2023-09-05] MEDS: Cefazolin 2 GM in 0.9% Normal Saline (100mL Bag) 100 ML IV (19:59)
[2023-09-05] MEDS: Lactated Ringers 1,000 ML 999 ML IV (20:00)
[2023-09-06 00:09] VITALS: BP 124/71; PULSE 71; RESP 16; TEMP 36.5
[2023-09-06 05:31] VITALS: BP 114/55; PULSE 68; RESP 16; TEMP 36.6
[2023-09-06 05:35] LABS: Hematocrit 29.1 % (37-47); Hemoglobin 9.3 g/dL (12.0-15.0); Mean Corpuscular Hgb 25.8 pg (27.0-32.0); Mean Corpuscular Volume 80.6 fL (81-99); Mean Platelet Vol. 10.3 fl (6.2-12.0); Platelet Count 195 K/mm3 (150-450); RBC Distribution Width CV 14.1 % (11.6-14.6); Red Blood Count 3.61 M/mm3 (4.2-5.4)
--- NOTE | 2023-09-06 10:45 | PN.OBGYN_ITS ---
Subjective Subjective Patient doing well without complaints. Tolerating PO. Ambulating and voiding without difficulty. feeding well. Denies chest pain, shortness of breath, calf pain/swelling, fevers, chills, lightheadedness. Objective Data Objective Data Vital Signs: Vital Signs Temp Pulse Resp BP Pulse Ox O2 Del Method 97.8 F 68 16 114/55 L 98 Room Air 09/06/23 05:31 09/06/23 05:31 09/06/23 05:31 09/06/23 05:31 09/05/23 19:27 09/06/23 05:31 Oxygen Delivery Method Room Air Weight: 231 lb Body Mass Index (BMI) 32.2 Intake & Output: Intake and Output for Last 24 Hours 09/04/23 09/05/23 09/07/23 23:59 23:59 00:59 Intake Total 4200.0 / 4200.0 Output Total 2836 / 2836 1700 / 1700 Balance 1364.0 / 1364.0 -1700 / -1700 Lab / Micro Data 09/06/23 05:25 Labs: Laboratory Results - last 24 hr 09/05/23 05:50: Crossmatch See Detail 09/05/23 19:37: WBC 13.3 H, RBC 3.93 L, Hgb 10.1 L, Hct 31.8 L, MCV 80.9 L, MCH 25.7 L, MCHC 31.8 L, RDW Std Deviation 41.0, RDW Coeff of Jonel 13.9, Plt Count 197, MPV 10.1 09/06/23 05:25: WBC 13.0 H, RBC 3.61 L, Hgb 9.3 L, Hct 29.1 L, MCV 80.6 L, MCH 25.8 L, MCHC 32.0, RDW Std Deviation 41.0, RDW Coeff of Jonel 14.1, Plt Count 195, MPV 10.3 ROS Constitutional Constitutional: Reports systems reviewed and no addt'l complaints, except as documented Cardiovascular Cardiovascular: Reports systems reviewed and no addt'l complaints, except as documented Respiratory/Chest Respiratory/Chest: Reports systems reviewed and no addt'l complaints, except as documented Gastrointestinal Gastrointestinal: Reports systems reviewed and no addt'l complaints, except as d ocumented Physical Exam Const alert, oriented x3 and no apparent distress HEENT Head and Scalp: atraumatic Resp normal respiratory effort GI soft to palpation and non-tender Bimanual Exam - Vag & Uterus: uterus non-tender Uterus Palpation: uterus fundus firm (below Umbilicus) Assessment & Plan (1) Vaginal delivery: COMMENT: SM IAL SROM 38 boy Pravin PPH atony cleared clots of uterus and gave methergine hemabate TXA (2) Delayed hemorrhage: (3) Atony of uterus with hemorrhage: PLAN: Plan s/p PPD # 1 1. routine post delivery care 2. breast feeding- support given 3. rh positive 4. rubella immune
[2023-09-06 12:20] VITALS: BP 115/66; PULSE 73; RESP 14; TEMP 36.6; O2SAT 97
[2023-09-06 17:43] VITALS: BP 109/74; PULSE 90; RESP 16; TEMP 36.6; O2SAT 98
== END 2023-09-06 18:30 | disposition home or self-care (01) | DRG 807 ==
LOC: WPOUT 05:43 → WP 05:43
PROVIDERS: Admitting Provider Obstetrics & Gynecology; PCP Family Medicine; Visit Provider Obstetrics & Gynecology
DX: O76 Abnormality in fetal heart rate and rhythm complicating labor and delivery (principal); Z37.0 Single live birth; Z3A.38 38 weeks gestation of pregnancy
CPT/HCPCS: 59025; 59050; 76815; 84112; 85025; 85027; 86780; 86850; 86900; 86901; 86920; 99221; A4216; G0378; J2405

== ENCOUNTER 2023-09-10 15:17 | Emergency (ER) | payer OTHER, MEDICAID, SELFPAY ==
[2023-09-10 15:18] VITALS: BP 135/83; PULSE 77; RESP 16; TEMP 35.7; O2SAT 98; BMI 29.0
--- NOTE | 2023-09-10 16:08 | VDLE_ITS ---
Reason For Study: Left leg pain Procedure LEFT This is a venous duplex using B-mode, color GSV is normal. flow and spectral Doppler. CFV is compressible, spontaneous, phasic, Exam performed in department. competent, and demonstrates normal A preliminary report was called and/or faxed augmentation. to Dr. Bui. FV is compressible, spontaneous, phasic, competent and demonstrates normal augmentation. POP V is compressible, spontaneous, phasic, competent and demonstrates normal augmentation. T/P Trunk is compressible. PTV is compressible. LT PerV is compressible. Thrombus filled varicose vein noted at mid calf. It is NONCOMPRESSIBLE. VL/Venous Duplex US, Unilateral Interpretation Summary Acute superficial vein thrombus noted in left mild calf varicosities. Deep veins of the left lower extremity are patent and compressible segmentally. There is no evidence of left lower extremity deep vein thrombosis. The left great saphenous vein avel ears patent and compressible segmentally. Ordering Physician: Piter Bui Referring Physician: Jeramy Tran MD Performed By: Ivet Mcgregor RVT
--- NOTE | 2023-09-10 16:09 | ED.VIS.LOWEX ---
HPI History of Present Illness HPI Narrative: Patient presents with left leg pain and swelling for the past 3 to 4 days. Patient states it came on gradually. Patient states she recently had a vaginal delivery. Patient denies any trauma or injury. Patient states she called her CARDIOPULMONARY PHYSICAL THERAPIST who referred to the emergency department to be assessed for possible DVT. Patient denies any chest pain or shortness of breath. Patient denies any nausea or vomiting. Patient denies any fevers or chills. Chief Complaint: Lower Extremity Injury Informant: patient Onset/Context/Timing Onset: Days (3-4) Context: Gradual Onset Timing: Continuous Quality of Pain: Dull Location: Left medial calf Worsened by: Palpation Relieved by: Nothing PFSH PFSH Medical History Encounter for IUD removal Mass of breast, right Home Medications promethazine 12.5 mg tablet 12.5 mg PO Q6H PRN nausea and vomiting #90 tabs 02/10/23 [Rx Last Taken Unknown] famotidine 20 mg tablet (Pepcid) 20 mg PO DAILY #30 tabs 05/07/23 [Rx Last Taken 09/04/23] Allergy/AdvReac Type Severity Reaction Status Date / Time No Known Allergies Allergy Verified 09/10/23 15:18 Surgical History no surgical history no surgical history Social History adopted: No household members: family housing: house number of children: 1 current occupational status: employed current occupation: [employer] current occupational exposures/hazards: No pets and animals: Yes pets and animals: dog(s) history of recent travel: Yes details: [place] out of state: Yes sexually active: Yes Smoking Status: Never smoker alcohol intake: never substance use type: does not use caffeine: No what type of physical activity do you participate in: none seatbelt use: always do you feel safe at home: Yes additional social history: Meir PERRY ED Constitutional Constitutional ED: Denies chills or fever(s) Eyes Eyes: Denies blurry vision or change in vision ENT ENT ED: Denies rhinorrhea or sore throat Cardiovascular Cardiovascular: Denies chest pain or palpitations Respiratory/Chest Respiratory/Chest: Denies cough or dyspnea Gastrointestinal Gastrointestinal: Denies nausea or vomiting Genitourinary Genitourinary ED: Denies dysuria or hematuria Musculoskeletal Musculoskeletal: Denies back pain or neck pain Integumentary Denies abscess or rash Neurologic Neurologic: Denies headache(s) or weakness Allergic/Immunologic Allergic/Immunologic ED: Denies mouth swelling or urticaria EXAM Physical Exam Const Vital Signs: 09/10/23 15:18 Temperature 96.2 F L Temperature Source Temporal Pulse Rate 77 Respiratory Rate 16 Blood Pressure 135/83 H Blood Pressure Mean 100 Pulse Ox 98 Oxygen Delivery Method Room Air Positive well nourished and well developed General Appearance ED: well developed and NAD HEENT Reports moist mucous membranes Neck full ROM and supple Extremity Extremity Narrative: There is some mild tenderness, edema, and ecchymosis over the medial aspect of the left calf. There is no tenderness over the posterior calf. There is no bony crepitance or step-off. There is good range of motion. Pedal pulses are equal bilaterally. Sensation was intact to light touch bilateral lower extremities. Strength is 5/5 bilaterally in the lower extremities. There is mild pain with dorsiflexion of the ankle. There are no palpable cords. Neuro oriented x3, CN's II-XII intact bilaterally, moves all extremities and no sensory deficits noted Sensorium / Orientation: alert Motor Exam: strength 5/5 throughout Psych mental status grossly normal MDM MDM MDM Narrative Medical decision making narrative: Differential diagnosis includes contusion, muscle strain, and DVT. Venous duplex of the left lower extremity will be obtained to assess for DVT. Radiography Diagnostic Testing: Venous duplex of the left lower extremity was obtained. There is a small area of superficial thrombophlebitis. There is no evidence of DVT. Treatment and Re-Evaluation Narrative: Patient was advised of her findings. Patient was instructed use warm compresses to the area. Patient was instructed to take Tylenol as needed for pain. Patient was instructed to follow-up with her primary care physician and CARDIOPULMONARY PHYSICAL THERAPIST in 5 to 7 days. Patient understood and was agreeable with the plan. All questions were answered. Discharge Plan Triage Chief Complaint: Lower Extremity Injury ED Provider: Piter Bui Dx/Rx/DC Orders Clinical Impression: Superficial thrombophlebitis Instructions: ED Thrombophlebitis, Superficial Prescriptions: No Action famotidine [Pepcid] 20 mg tablet 20 mg PO DAILY Qty: 30 6RF promethazine 12.5 mg tablet 12.5 mg PO Q6H PRN (Reason: nausea and vomiting) Qty: 90 1RF Hold Instructions: Order Completed Primary Care Provider: Jeramy Tran Referrals: Jeramy Tran MD [Primary Care Provider] - 5-7 Days Belle Nath MD [Med Staff - Active Staff] - Keep Niraj appointment Disposition Disposition: Home, Self Care
[2023-09-10 16:44] VITALS: BP 135/83; PULSE 77; RESP 16; TEMP 35.7; O2SAT 98
== END 2023-09-10 16:45 | disposition home or self-care (01) ==
PROVIDERS: Emergency Provider Emergency Medicine; PCP Family Medicine; Visit Provider Emergency Medicine
DX: I80.02 Phlebitis and thrombophlebitis of superficial vessels of left lower extremity (principal)
CPT/HCPCS: 93971; 99282

== ENCOUNTER → 2023-10-19 | Outpatient (CLI) | payer OTHER, MEDICAID, SELFPAY ==
[2023-10-19 10:37] LABS: Absolute Lymphocyte Count 2.23 X10^3/uL (0.83-4.51); Absolute Neutrophil Count 2.2 X10^3/uL (2.0-7.7); Basophil# 0.03 X10^3/uL; Basophil% 0.6 % (0-1); Eosinophil# 0.25 X10^3/uL; Hematocrit 40.1 % (37-47); Hemoglobin 13.3 g/dL (12.0-15.0); Lymphocyte # 2.23 X10^3/ul (0.83-4.51); Lymphocyte % 44.4 % (19-41); Mean Corp Hgb Conc 33.2 g/dL (32-36); Mean Corpuscular Hgb 26.4 pg (27.0-32.0); Mean Corpuscular Volume 79.7 fL (81-99); Mean Platelet Vol. 9.2 fl (6.2-12.0); Monocyte# 0.35 X10^3/uL; NRBC Flagged by Analyzer 0 % (0-5); Neutrophil # 2.15 X10^3/uL (2.7-7.7); Neutrophil % 42.8 % (47-70); Platelet Count 220 K/mm3 (150-450); RBC Distribution Width CV 13.4 % (11.6-14.6); RBC Distribution Width SD 38.6 fl (35.1-43.9); Red Blood Count 5.03 M/mm3 (4.2-5.4)
== END | disposition home or self-care (01) ==
LOC: PAVLAB 10:22
PROVIDERS: Advanced Practice Midwife; PCP Family Medicine; Referring Provider Nurse Practitioner Women's Health; Visit Provider Nurse Practitioner Women's Health
DX: O09.90 Supervision of high risk pregnancy, unspecified, unspecified trimester (principal); Z3A.00 Weeks of gestation of pregnancy not specified
CPT/HCPCS: 36415; 85025